=== PATIENT | male | born 1945 | race Caucasian/White ===

== ENCOUNTER 2025-04-11 08:18 | Inpatient (IN) | payer MEDICARE, BC, SELFPAY ==
[2025-04-09 13:18] VITALS: BP 168/73
[2025-04-09 13:42] VITALS: BP 153/105
--- NOTE | 2025-04-09 13:44 | ED.CVA ---
History of Present Illness
General
Chief Complaint: CVA/TIA Symptoms
Source: patient
Exam Limitations: none
Time Seen by Provider: 04/09/25 13:39
Nursing documentation reviewed up to this point in time: agreed with
Onset of Stroke Symptoms
Onset of symptoms known: Yes
Date of onset of symptoms: 04/09/25
Time of onset of symptoms: 09:00
History of Present Illness
History of Present Illness:
Note:
CHIEF COMPLAINT(S)
Altered mental status and difficulty with ambulation.
HISTORY OF PRESENT ILLNESS
The patient is an 79-year-old male who presented with altered mental status and difficulty walking. 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 The patient reported having a severe cold and
headache the previous day. He took delsym last night before sleeping. His found him with his eyes closed at 9:00 AM, noting he was not acting as usual. He did not exhibit the ability to control his movements reliably, such as walking properly,
stating he felt confused. On examination, the patient answered some orientation questions incorrectly and had difficulty with coordination exercises.
SOCIAL HISTORY
The patient reported occasional beer consumption and confirmed he does not smoke tobacco or use illicit drugs.
PAST SURGICAL HISTORY
The patient underwent surgery for inguinal hernia at the age of 17.
PHYSICAL EXAM
-
Physical Exam
General: no apparent distress, not acutely ill
Neck: supple. no meningeal signs. normal posterior pharynx
Heart: s1/s2 regular rate and rhythm, no murmur. equal radial
pulses.
HEENT: Pupils equal round reactive to light, EOMI
Lungs: no acute respiratory distress. clear bilaterally
Abdomen: normal bowel sounds. not tender. no CVAT
Neuro: alert and oriented. no focal neurological deficits cranial nerves II through XII intact
Skin: no rash
Psychiatric: well kept. interactive and cooperative
Extremities: no edema. no calf tenderness. negative homans. good distal pulses
- Nursing notes reviewed and vital signs reviewed.
PLAN
1. A neurological evaluation is planned, and the patient may be admitted for further observation and management.
2. Consultation with a neurologist to rule out cerebrovascular events, such as a stroke.
3. Blood tests have been ordered to further assess the patients condition.
4. Awaiting radiology interpretation of the computed tomography scan for further evaluation.
5. Consideration of starting a daily aspirin regimen after consultation with the neurologist.
DIFFERENTIAL DIAGNOSIS
The Differential Diagnosis includes, in no particular order and is not limited to:
1. Transient Ischemic Attack (TIA)
2. Cerebrovascular Accident (CVA or Stroke)
3. Acute Confusional State or Delirium
4. Medication Side Effects or Overdose
5. Intracranial Hemorrhage
6. Infection such as Sepsis or Viral Encephalitis
7. Metabolic Disturbance, e.g., Hypoglycemia or Electrolyte Imbalance
8. Dehydration
9. Dementia exacerbation
10. Toxicity or Substance Intoxication
CARE-UPDATE
04/09/25 - 14:43
CT head results normal. Neurology consulted, recommends CT angiography of head and neck. Admission to hospitalist service for further evaluation and workup.
Disposition:
SUMMARY OF ENCOUNTER
The patient is an 79-year-old male who presented to the emergency department with altered mental status and difficulty walking. His disorientation and confusion started in the morning after awakening, following a previous day of severe cold and
headache alleviated by Delsym. According to his , he failed to control his movements properly due to confusion. Examination revealed inaccuracies in orientation questions and trouble coordinating movements. Initial management included a
neurological assessment, blood tests, and a CT scan to evaluate potential cerebrovascular incidents. The CT scan results were normal.
CONSIDERATION FOR ADMISSION
Admission to the hospitalist service was considered for further evaluation and management.
ASSESSMENT
The differential diagnosis included possible transient ischemic attack, cerebrovascular accident, medication side effects, infection, metabolic disturbances, and dehydration. Given the altered mental status and abnormal coordination, a neurological
cause was heavily considered, possibly influenced by medication side effects or infection.
PLAN
1. Conduct a neurological evaluation and consider admission for continued observation and management.
2. Consult with a neurologist to rule out events such as a stroke.
3. Continue awaiting further analysis from the CT angiography of head and neck as recommended by the neurologist.
4. Consider initiating a daily aspirin regimen upon neurologist approval.
MANAGEMENT OF THE PATIENTS CARE WAS DISCUSSED WITH
Neurology consulted, recommending CT angiography of the head and neck.
INDEPENDENT INTERPRETATION OF TESTS
- My independent interpretation of the CT head is normal, ruling out acute lesions or hemorrhages.
MEDICAL DECISION MAKING
The patient presented with altered mental status and difficulty ambulating, raising alarm for severe conditions like stroke or transient ischemic attacks. This, coupled with potential medication side effects, required intricate differential
diagnosis and management considerations. The appropriate lab tests and CT imaging were analyzed, informing continued care decisions. Social factors did not complicate management given the patients stable social situation. The possibility of
hospitalization was considered to ensure comprehensive evaluation and care continuity.
Past History
Past History
ED Past Medical History: None
ED Past Surgical History: None
Social History
Tobacco: Non-smoker
Alcohol: Occasional
Drug: None
Personal:
Phy Exam
Physical Exam
Physical Exam:
.
Scores
NIH Stroke Score
Level of Consciousness: 0 - Alert
LOC Questions: 0-Answers both correctly
LOC Commands: 0-Performs both correctly
Best Horizontal Gaze: 0-Normal
Visual Anand: 0=Normal, no visual loss
Facial Palsy: 0=Normal, symmetrical
Motor - Right Arm: 0=No drift 10 seconds
Motor - Left Arm: 0=No drift 10 seconds
Motor - Right Le-No drift 5 seconds
Motor - Left Le-No drift 5 seconds
Limb Ataxia: 0-Absent
Sensation: 0-Normal
Best Language: 0-No aphasia
Dysarthria: 0-Normal
Extinction and Inattention: 0-No abnormality
NIH Total Score:: 0
Thrombolytic Contraindication
Inclusion and Exclusion criteria reviewed: Yes
Reasons for NON-Tx with Thrombolytics ABSOLUTE Exclusions: Greater than 4.5 hrs from onset of sxs
Course
Orders/Labs/Results
Orders:
Orders
04/09/25 13:21
Electrocardiogram (*1) Urgent
Reason for Study: Vertigo / Dizzy
CT Head W/o Iv Contrast Urgent
Comment:
Reason For Exam: gait issues/slow speech
EKG- Treatment ONCE
04/09/25 13:37
Complete Blood Count/With Diff Urgent
Comprehensive Metabolic Panel Urgent
Glycohemoglobin (HgbA1c) Urgent
PTT Urgent
Troponin I Urgent
04/09/25 14:28
Aspirin Chewable [Low Strength Aspirin] 324 mg PO NOW STA
Clopidogrel Bisulfate [Plavix] 300 mg PO NOW STA
04/09/25 14:29
CT Head & Neck Angio W/wo IV Urgent
Reason For Exam: ataxia, garbled speech
04/09/25 14:48
Admit/Transfer Patient As Directed
Co-Sign Provider:
Level of Care: Observation services
Assign to:: Telemetry
Physician / Group: tomas
Diagnosis: possible cva
Reason for Telemetry: Arrhythmia
Date to Stop Telemetry: 04/12/25
Time to Stop Telemetry: 11:00
Code Status As Directed
Resuscitation Status: Full Code
PRN Pain Medication Management As Directed
May give lesser potent ordered pain med per pt: Yes
preference::
Protocol:: Medication orders for pain may be administered in a
manner that supports deferring to patient preference
when the pt is:
- Requesting an ordered lesser potent pain medication.
Least to most potent pain medications are defined
as: acetaminophen < NSAID < tramadol < opioids
(morphine, oxycodone, hydromorphone).
- Requesting a lesser dose of the same medication IF
ORDERED.
- Requesting a less intrusive route of administration
if both routes are prescribed by the provider (PO <
IV).
04/09/25 Dinner
Regular
At Your Request: Full Participation
04/09/25 16:39
NEUROLOGY CONSULT Routine
Consulting Provider: Shahla Meza
Was physician already notified: Yes
MRI Brain [MR Brain Without Contrast] Routine
Comment:
Reason For Exam: speaking diffculty
Recent pill cam endoscopy?: No
Activity As Directed
Activity Level: As Tolerated
Pneumatic Compression Sleeves As Directed
Type: Knee high
Vital Signs As Directed
Frequency: Per unit guidelines
DX Deep Vein Thrombosis Video Routine
04/09/25 17:27
Lipid Profile [Cardiovascular Evaluation] Routine
04/10/25 06:00
Complete Blood Count/With Diff IN AM
Comprehensive Metabolic Panel IN AM
04/10/25 08:00
Aspirin Chewable [Low Strength Aspirin] 81 mg PO DAILY
Clopidogrel Bisulfate [Plavix] 75 mg PO DAILY
04/12/25 11:00
DC Protocol for Telemetry ONCE
Abnormal Lab Results
04/09/25
13:37
Absolute Lymphs (auto) 0.5 L 10^3/uL
(1.2-3.4)
Absolute Monos (auto) 1.2 H 10^3/uL
(0.1-0.6)
Lymphocytes % 6.3 L %
(20.5-51.1)
Monocytes % 14.5 H %
(1.7-9.3)
Potassium 5.2 H mmol/L
(3.5-5.1)
BUN 32 H mg/dl
(9-20)
04/09/25 13:37
04/09/25 13:37
Vital Signs
Initial and Last Documented VS:
Initial Vital Signs
Temp Pulse Resp BP Pulse Ox
98.0 F 57 20 168/73 99
04/09/25 13:18 04/09/25 13:18 04/09/25 13:18 04/09/25 13:18 04/09/25 13:18
Last Documented Vital Signs
Temp Pulse Resp BP Pulse Ox
98.1 F 53 20 201/79 97
04/09/25 16:47 04/09/25 16:47 04/09/25 16:47 04/09/25 17:42 04/09/25 16:47
*Pulse Oximetry
SaO2: 99
Oxygen Mode of Delivery: Room air
*Critical Care Note
Total Time (30-74mins, 75-104mins- exclusive of procedures): Not Applicable
ED Attending Note
-
Portions of this chart may have been created with voice recognition software.� Occasional wrong word or��sound alike� substitutions may have occurred due to the inherent limitations of voice recognition software.
Discharge Plan
Departure
Patient Disposition: Admit
Date of Disposition: 04/09/25
Time of Disposition: 14:32
Admit to: Telemetry
Presentation/result/management discussed w/ accepting MD/DO: Hospitalist
Patient with high blood pressure during this ER visit?: Yes
Condition: Good
Discharge Problem:
TIA (transient ischemic attack)
Interventions
Interventions:
*Risk Screen - Suicide Last Done: 04/09/25 16:34
*General Assessment Last Done: 04/09/25 13:18
*Neglect/Abuse Screening Last Done: 04/09/25 16:34
*ED- Fall Risk Assessment Last Done: 04/09/25 16:34
*ED COVID-19 Vaccine History Last Done: 04/09/25 16:34
*Nursing Disposition Last Done: 04/09/25 16:34
ED- Pulmonary Assessment Last Done: 04/09/25 15:55
ED- Neurological Assessment Last Done: 04/09/25 15:52
ED- Cardiac Assessment Last Done: 04/09/25 15:55
ED Swallowing Screen Last Done: 04/09/25 15:26
Discharge Date and Time
Discharge Date/Time: 04/09/25 16:35
[2025-04-09 13:47] LABS: % Basophils 0.5 % (0-2); % Eosinophils 4.7 % (0-6); % Immature Granulocytes 0.3 % (0-0.5); % Lymphocytes 6.3 % (20.5-51.1); % Monocytes 14.5 % (1.7-9.3); % Neutrophils 73.7 % (42.2-75.2); Absolute Eosinophils 0.4 10^3/uL (0-0.7); Absolute Lymphocytes 0.5 10^3/uL (1.2-3.4); Absolute Monocytes 1.2 10^3/uL (0.1-0.6); Absolute Neutrophils 5.8 10^3/uL (1.4-6.5); Hematocrit 45.4 % (39.0-52.0); Hemoglobin 15.7 g/dL (13.0-18.0); Mean Corp Hgb Conc. 34.6 g/dL (33.0-37.0); Mean Corpuscular Hgb 30.9 pg (27.0-31.0); Mean Corpuscular Volume 89.4 fL (80.0-94.0); Mean Platelet Volume 9.8 fL (7.4-10.4); Nucleated Red Blood Cells % 0 % (-); Platelet Count 193 10^3/uL (130-400); Red Blood Cell Count 5.08 10^6/uL (4.70-6.10); Red Cell Dist. Width 12.6 % (11.5-14.5); White Blood Cell Count 7.9 10^3/uL (4.8-10.8)
[2025-04-09 14:00] VITALS: BP 150/68
[2025-04-09 14:01] LABS: ALT (SGPT) 19 U/L (0-50); AST (SGOT) 34 U/L (17-59); Albumin 4.4 g/dl (3.5-5.0); Alkaline Phosphatase 43 U/L (38-126); Blood Urea Nitrogen 32 mg/dl (9-20); Calcium 8.5 mg/dl (8.4-10.2); Carbon Dioxide 24 mmol/L (22-30); Chloride 106 mmol/L (98-107); Glucose 81 mg/dl (70-99); Potassium 5.2 mmol/L (3.5-5.1); Sodium 136 mmol/L (135-145); Total Protein 7.3 g/dl (6.3-8.2); eGFR > 60.00
[2025-04-09 14:11] LABS: Troponin I < 0.012 ng/ml
[2025-04-09 14:32] VITALS: BMI 23.6
[2025-04-09] MEDS: LOW STRENGTH ASPIRIN 324 MG PO (14:40)
[2025-04-09] MEDS: PLAVIX 300 MG PO (14:41)
--- NOTE | 2025-04-09 14:51 | HPS.HSE ---
Family Physician
-
Family Physician: * NONE
Chief Complaint
-
speaking difficulty
History of Present Illness
79-year-old male without past medical history presenting with acute onset of feeling off balance, difficulty speaking since this morning as well as generalized weakness. He had a headache last night which she continues to have mildly. Feels dizzy
today. No vertigo. No blurry vision. No double vision. No numbness or tingling, focal weakness. No numbness or tingling. No difficulty swallowing.
Denies symptoms like this previously.
Denies smoking. Drinks alcohol occasionally. No drugs.
His father had open heart surgery.
Medical History
Past Medical History
Past Medical History: Reports None
Past Surgical History: Reports None
Social History
Tobacco: Non-smoker
Alcohol: Occasional
Drug: None
Family History
Family History: Not pertinent
Allergies / Home Medications
Allergies reflects when Allergies were last updated in [facility].
Home Medications with original date entered in [facility]
Allergy/Medication List:
Allergies
Allergy/AdvReac Type Severity Reaction Status Date / Time
No Known Allergies Allergy Verified 04/09/25 13:18
Home Medications
dextromethorphan HBr 30 mg/5 mL oral liquid 30 mg PO DAILYPRN PRN cough 04/09/25
pseudoephedrine HCl 30 mg tablet (Sudafed) 30 mg PO DAILYPRN PRN allergies 04/09/25
Review of Systems
-
History Source: Patient
A 12 point ROS was completed and negative except as noted: Yes
Constitutional: Reports No Symptoms
EENT: Reports No Symptoms
Respiratory: Reports No Symptoms
Cardiac: Reports No Symptoms
Abdomen/GI: Reports No Symptoms
: Reports No Symptoms
Musculoskeletal: Reports No Symptoms
Skin: Reports No Symptoms
Neurological: Reports No Symptoms
Endocrine: Reports No Symptoms
Hematologic/Lymphatic: Reports No Symptoms
Psych: Reports No Symptoms
Physical Exam
Vital Signs
Vital Signs
Temp Pulse Resp BP Pulse Ox
98.0 F 61 16 150/68 99
04/09/25 13:18 04/09/25 14:15 04/09/25 14:15 04/09/25 14:00 04/09/25 13:45
Physical Exam
General: Well Developed, Well Nourished and No Apparent Distress
HEENT: NormoCephalic, Moist mucous membranes and Atraumatic
Respiratory: Clear
Cardiac: S1/S2 and Regular Rhythm; No Murmur or Rub
GI: Soft, Non Tender, Non Distended and Normal Bowel Sounds; No Organomegaly
Rectal: Deferred by Provider
Musculoskeletal: No Clubbing, No Cyanosis and No Edema
Skin: No Rash
Neuro: Nonfocal/grossly intact
Laboratory Results
-
04/09/25 13:37
04/09/25 13:37
Laboratory Results
APTT 33.0 Sec (23.4-35.0) 04/09/25 13:37
Total Bilirubin 1.0 mg/dl (0.2-1.3) 04/09/25 13:37
AST 34 U/L (17-59) 04/09/25 13:37
ALT 19 U/L (0-50) 04/09/25 13:37
Alkaline Phosphatase 43 U/L (38-126) 04/09/25 13:37
Troponin I < 0.012 ng/ml 04/09/25 13:37
Data Reviewed
-
Lab Data: Labs Reviewed by me
Old Records: Reviewed
Impression/Plan
-
IMPRESSION:
PLAN:
# Gait dysfunction/dysarthria/headache concerning for possible CVA
- CT head negative
- CTA head and neck pending
- Aspirin and Plavix given
- Check A1c and lipid panel
- Check MRI brain
- Neurology consulted
Full code
DVT prophylaxis SCDs
Regular diet
--- NOTE | 2025-04-09 16:19 | CON.NEURO ---
Consultation
Order
Date of Consultation: 04/09/25
Requesting Provider: Tri Garza MD
Reason for Consult: Stroke
Neurology Consultation Note.
HPI: This is an 79-year-old right-handed man with no recent medical care presents with acute onset of speech difficulties and unsteadiness that began this morning.
The patient reports that yesterday he experienced a cold and a severe headache. This morning at approximately 9:00 AM, he woke up and noticed he couldn't talk properly. He endorses difficulty forming words. The patient states that his thinking and
comprehension remained clear, but his expressive abilities were preserved. These speech difficulties are ongoing and the patient is unsure if they are improving.
Mr. Calderon also experienced imbalance, nonpositional dizziness, resulting in one fall with no loss of consciousness or head trauma. He also reports feeling dizzy, specifically describing a spinning sensation. A mild headache persists from
yesterday. The patient denies weakness or numbness on one side, double vision, changes in vision, difficulty swallowing, nausea, or tinnitus.
The patient has not seen a doctor in 10 years. He exercises regularly, going to the gym 5 times a week, and states that these symptoms 'came out of nowhere.'
ER VS: 168/73, 57�54, afebrile.
EKG:NSR, QTc Int : 446 ms
PDMP:none
Labs: Normal WBCs, sodium, glucose, potassium�5.2, creatinine�1.2.
CT head wo contrast�no acute abnormalities
CTA head/neck�unremarkable
PMH: No prior medical care
PSH: Bilateral cataract surgery, hernia repair
SH: , former smoker, retired business operations specialist, moderate alcohol consumption
FH: Father-coronary artery disease
All:NKDA
ROS: Constitutional: Negative. Negative for chills, fever and unexpected weight change.
HENT: Positive for chronic impairment
Eyes: Negative. Negative for photophobia, pain and visual disturbance.
Respiratory: Negative for cough, choking and shortness of breath.
Cardiovascular: Negative for chest pain, palpitations and leg swelling.
Gastrointestinal: Negative for abdominal pain and vomiting.
Endocrine: Negative. Negative for cold intolerance.
Genitourinary: Negative for dysuria, flank pain and urgency.
Musculoskeletal: Negative for back pain, gait problem, neck pain and neck stiffness.
Skin: Negative for rash.
Allergic/Immunologic: Negative. Negative for immunocompromised state.
Neurological: Positive for dizziness, speech difficulties (forming words), unsteadiness. Negative for weakness on one side, numbness on one side, slurred speech.
Psychiatric/Behavioral: Negative for behavioral problems, confusion and hallucinations.
General: Well developed. In no acute distress.
Cardio: Regular rate and rhythm without murmur. Extremities are without cyanosis or edema.
Neuro:
Mental Status: Alert, oriented to person, place, and date. Normal attention and recall. Minimal expressive aphasia. Good fund of knowledge. Follows complex requests across the midline. Comprehension, naming, and repetition intact.
Cranial Nerves: Pupils are equally round, surgical. EOMs full. Visual starr full to confrontation. No ptosis. No nystagmus. V1-V3 intact to light touch and pinprick bilaterally, symmetric. Face symmetric. Impaired hearing AU. The palate
elevated well. SCMs and traps 5/5. Tongue midline. No dysarthria.
Motor: Normal bulk and tone. No pronator or arm drift. Strength 5/5 throughout. No clonus.
Reflexes: 2+ throughout the upper extremities and knees. Plantar responses flexor bilaterally.
Sensory: Normal proprioception at the toes
Coordination: No dysmetria or tremor.
Gait: deferred
Assessment and Plan:
I. Acute dysphasia. Likely etiology�vascular
II. HTN
III. LUISA
-Continue Telemetry monitoring
-Aspiration precautions
-Start antihypertensive medications if BP>140/90 mmHg and neurologically stable in 24 to 48 hours after stroke onset
- Start DAPT after Plavix load.
-Lipitor 40 mg QHS.
-Please check HbA1C, LDL.
-Brain MRI without
-TTE
-PT.
-DVT prophylaxis.
I personally reviewed all radiology and labs along with past medical records pertinent to current medical problems. Total time spent in patient care is 60 minutes.
Thank you for allowing us to participate in the care of this patient. We will continue to follow. Please do not hesitate to contact us with any questions or concerns.
Subjective/Objective
Subjective Data
Date of Service: April 09, 2025
Objective Data
Vital Signs
Temp Pulse Resp BP Pulse Ox
36.7 C 55 14 150/68 99
04/09/25 13:18 04/09/25 16:00 04/09/25 16:00 04/09/25 14:00 04/09/25 13:45
Lab Results
04/09/25 13:37
04/09/25 13:37
APTT 33.0 Sec (23.4-35.0) 04/09/25 13:37
Sodium 136 mmol/L (135-145) 04/09/25 13:37
Potassium 5.2 mmol/L (3.5-5.1) H 04/09/25 13:37
BUN 32 mg/dl (9-20) H 04/09/25 13:37
Glucose 81 mg/dl (70-99) 04/09/25 13:37
Calcium 8.5 mg/dl (8.4-10.2) 04/09/25 13:37
Patient Allergies
No Known Allergies Allergy (Verified 04/09/25 13:18)
Medications
-
Home Medications
�Medication �Instructions �Recorded
dextromethorphan HBr 30 mg/5 mL 30 mg PO DAILYPRN PRN cough 04/09/25
oral liquid
pseudoephedrine HCl 30 mg tablet 30 mg PO DAILYPRN PRN allergies 04/09/25
(Sudafed)
Vital Signs and Labs
-
Vital Signs and Labs:
Vital Signs
Temp Pulse Resp BP Pulse Ox
36.7 C 55 14 150/68 99
04/09/25 13:18 04/09/25 16:00 04/09/25 16:00 04/09/25 14:00 04/09/25 13:45
Lab Results
04/09/25 13:37
04/09/25 13:37
APTT 33.0 Sec (23.4-35.0) 04/09/25 13:37
Sodium 136 mmol/L (135-145) 04/09/25 13:37
Potassium 5.2 mmol/L (3.5-5.1) H 04/09/25 13:37
BUN 32 mg/dl (9-20) H 04/09/25 13:37
Glucose 81 mg/dl (70-99) 04/09/25 13:37
Calcium 8.5 mg/dl (8.4-10.2) 04/09/25 13:37
Home Medications
-
Home Medications
dextromethorphan HBr 30 mg/5 mL oral liquid 30 mg PO DAILYPRN PRN cough 04/09/25
pseudoephedrine HCl 30 mg tablet (Sudafed) 30 mg PO DAILYPRN PRN allergies 04/09/25
[2025-04-09 16:47] VITALS: BP 202/80
--- NOTE | 2025-04-09 17:34 | PTCARENOTE ---
Received pt at 1640. AAOX3, ambulatory. NIH 0. BP 200s/70s, HR 50s-- attending and neurologist notified for orders.
[2025-04-09] MEDS: APRESOLINE 5 MG IV (17:42)
[2025-04-09 18:00] LABS: HDL Cholesterol 63 mg/dl; LDL Cholesterol, Calculated 96 mg/dl; Total Cholesterol 172 mg/dl (50-199); Triglyceride 67 mg/dl (10-149); Very Low Density Lipoprotein 13 mg/dl (0-30)
[2025-04-09 18:42] VITALS: BMI 23.6
[2025-04-09 19:42] VITALS: BP 149/74
[2025-04-09 23:30] VITALS: BP 178/85
[2025-04-10] VITALS (7 sets, daily range): BP systolic 138–185; BP diastolic 63–87
[2025-04-10] MEDS: LOW STRENGTH ASPIRIN 81 MG PO (07:46)
[2025-04-10] MEDS: PLAVIX 75 MG PO (07:46)
--- NOTE | 2025-04-10 07:56 | W.PN.NEURO.1 ---
Today's Communication / Plan
-
.
Subjective/Objective
Subjective Data
Date of Service: April 10, 2025
Neurology follow-up note.
Mr. Calderon states that his speech alteration lasted for most of yesterday, with some improvement noted by evening. He is 'considerably better today' but not back to baseline according to patient's spouse.
Blood pressure in the morning was 185/81, continues to be afebrile.
Brain MRI showed no acute infarcts, mild hyperintensity within the periventricular and deep subcortical white matter.
Routine EEG�no epileptiform abnormalities.
LDL�96, vitamin B12�pending.
PMH: HTN
PSH: Bilateral cataract surgery, hernia repair
SH: , former smoker, retired [employer], moderate alcohol consumption
FH: Father-coronary artery disease
All:NKDA
ROS: Constitutional: Negative. Negative for chills, fever and unexpected weight change.
HENT: Positive for chronic impairment
Eyes: Negative. Negative for photophobia, pain and visual disturbance.
Respiratory: Negative for cough, choking and shortness of breath.
Cardiovascular: Negative for chest pain, palpitations and leg swelling.
Gastrointestinal: Negative for abdominal pain and vomiting.
Endocrine: Negative. Negative for cold intolerance.
Genitourinary: Negative for dysuria, flank pain and urgency.
Musculoskeletal: Negative for back pain, gait problem, neck pain and neck stiffness.
Skin: Negative for rash.
Allergic/Immunologic: Negative. Negative for immunocompromised state.
Neurological: Positive for dizziness, speech difficulties (forming words), unsteadiness. Negative for weakness on one side, numbness on one side, slurred speech.
Psychiatric/Behavioral: Negative for behavioral problems, confusion and hallucinations.
General: Well developed. In no acute distress.
Cardio: Regular rate and rhythm without murmur. Extremities are without cyanosis or edema.
Neuro:
Mental Status: Alert, oriented to person, place, and date. Normal attention and recall. Minimal expressive aphasia. Good fund of knowledge. Follows complex requests across the midline. Comprehension, naming, and repetition intact.
Cranial Nerves: Pupils are equally round, surgical. EOMs full. Visual starr full to confrontation. No ptosis. No nystagmus. V1-V3 intact to light touch and pinprick bilaterally, symmetric. Face symmetric. Impaired hearing AU. The palate
elevated well. SCMs and traps 5/5. Tongue midline. No dysarthria.
Motor: Normal bulk and tone. No pronator or arm drift. Strength 5/5 throughout. No clonus.
Reflexes: 2+ throughout the upper extremities and knees. Plantar responses flexor bilaterally.
Sensory: Normal proprioception at the toes
Coordination: No dysmetria or tremor.
Gait: deferred
Assessment and Plan:
I. Hypertensive encephalopathy, significantly improved.
II. HTN
III. LUISA
-Continue Telemetry monitoring
-Blood pressure goal�normotension
-Please follow-up vitamin B12 level, TFTs
-Continue aspirin 81 mg once a day
-Outpatient neurology follow-up.
-Case was discussed with patient's spouse
I personally reviewed all radiology and labs along with past medical records pertinent to current medical problems. Total time spent in patient care is 37 minutes.
Thank you for allowing us to participate in the care of this patient. Please do not hesitate to contact us with any questions or concerns.
Objective Data
Vital Signs
Temp Pulse Resp BP Pulse Ox
36.7 C 56 18 171/79 95
04/10/25 03:19 04/10/25 03:19 04/10/25 03:19 04/10/25 03:19 04/10/25 03:19
APTT 33.0 Sec (23.4-35.0) 04/09/25 13:37
Sodium 136 mmol/L (135-145) 04/09/25 13:37
Potassium 5.2 mmol/L (3.5-5.1) H 04/09/25 13:37
BUN 32 mg/dl (9-20) H 04/09/25 13:37
Glucose 81 mg/dl (70-99) 04/09/25 13:37
Calcium 8.5 mg/dl (8.4-10.2) 04/09/25 13:37
LDL Cholesterol, Calc 96 mg/dl 04/09/25 17:27
Patient Allergies
No Known Allergies Allergy (Verified 04/09/25 13:18)
Vital Signs and Labs
-
Vital Signs and Labs:
Vital Signs
Temp Pulse Resp BP Pulse Ox
36.7 C 53 20 153/87 96
04/10/25 11:39 04/10/25 11:39 04/10/25 11:39 04/10/25 11:39 04/10/25 11:39
Lab Results
04/10/25 07:03
04/10/25 07:03
APTT 33.0 Sec (23.4-35.0) 04/09/25 13:37
Sodium 137 mmol/L (135-145) 04/10/25 07:03
Potassium 4.8 mmol/L (3.5-5.1) 04/10/25 07:03
BUN 28 mg/dl (9-20) H 04/10/25 07:03
Glucose 93 mg/dl (70-99) 04/10/25 07:03
Calcium 8.6 mg/dl (8.4-10.2) 04/10/25 07:03
LDL Cholesterol, Calc 96 mg/dl 04/09/25 17:27
Medications
-
Medications:
Generic Name Dose Route Start Last Admin
Trade Name Freq PRN Reason Stop Dose Admin
Amlodipine Besylate 5 mg 04/10/25 12:00 04/10/25 12:13
Amlodipine 5 Mg Tablet PO 05/08/25 11:59 5 mg
BID CALEB Administration
Aspirin 81 mg 04/10/25 08:00 04/10/25 07:46
Aspirin 81 Mg Chewable Tablet PO 05/08/25 07:59 81 mg
DAILY CALEB Administration
Carvedilol 3.125 mg 04/10/25 12:00 04/10/25 12:13
Carvedilol 3.125 Mg Tablet PO 05/08/25 11:59 3.125 mg
BID CALEB Administration
Clopidogrel Bisulfate 75 mg 04/10/25 08:00 04/10/25 07:46
Clopidogrel 75 Mg Tablet PO 05/08/25 07:59 75 mg
DAILY CALEB Administration
Hydralazine HCl 5 mg 04/09/25 17:36 04/09/25 17:42
Hydralazine 20 Mg/Ml Vial IV 05/07/25 17:35 5 mg
Q6HPRN PRN Administration
SBP>180
Sodium Chloride 0 flush 04/09/25 17:00
Sodium Chloride 0.9% (Flush) Syringe IV 05/07/25 16:59
PER PROTOCOL CALEB
Home Medications
-
Home Medications
dextromethorphan HBr 30 mg/5 mL oral liquid 30 mg PO DAILYPRN PRN cough 04/09/25
pseudoephedrine HCl 30 mg tablet (Sudafed) 30 mg PO DAILYPRN PRN allergies 04/09/25
[2025-04-10 07:59] LABS: % Basophils 0.4 % (0-2); % Eosinophils 7.2 % (0-6); % Immature Granulocytes 0.4 % (0-0.5); % Lymphocytes 12.4 % (20.5-51.1); % Monocytes 19.9 % (1.7-9.3); % Neutrophils 59.7 % (42.2-75.2); Absolute Eosinophils 0.5 10^3/uL (0-0.7); Absolute Lymphocytes 0.9 10^3/uL (1.2-3.4); Absolute Monocytes 1.4 10^3/uL (0.1-0.6); Absolute Neutrophils 4.3 10^3/uL (1.4-6.5); Hematocrit 47.2 % (39.0-52.0); Hemoglobin 16.3 g/dL (13.0-18.0); Mean Corp Hgb Conc. 34.5 g/dL (33.0-37.0); Mean Corpuscular Hgb 30.4 pg (27.0-31.0); Mean Corpuscular Volume 87.9 fL (80.0-94.0); Mean Platelet Volume 9.8 fL (7.4-10.4); Nucleated Red Blood Cells % 0 % (-); Platelet Count 198 10^3/uL (130-400); Red Blood Cell Count 5.37 10^6/uL (4.70-6.10); Red Cell Dist. Width 12.9 % (11.5-14.5); White Blood Cell Count 7.1 10^3/uL (4.8-10.8)
[2025-04-10 08:13] LABS: ALT (SGPT) 21 U/L (0-50); AST (SGOT) 34 U/L (17-59); Albumin 4.2 g/dl (3.5-5.0); Alkaline Phosphatase 58 U/L (38-126); Blood Urea Nitrogen 28 mg/dl (9-20); Calcium 8.6 mg/dl (8.4-10.2); Carbon Dioxide 24 mmol/L (22-30); Chloride 106 mmol/L (98-107); Estimated Creatinine Clearance 48 ml/min; Glucose 93 mg/dl (70-99); Potassium 4.8 mmol/L (3.5-5.1); Sodium 137 mmol/L (135-145); Total Bilirubin 0.7 mg/dl (0.2-1.3); Total Protein 6.8 g/dl (6.3-8.2); eGFR > 60.00
[2025-04-10 10:50] LABS: Glycohemoglobin (HgbA1c) 5.1 % (4.0-5.6)
--- NOTE | 2025-04-10 11:48 | EEGC.RPT ---
Continuous EEG Report
Recording
Start Date of Data Reviewed: 04/10/25
End Date of Data Reviewed: 04/10/25
Done with Video Recording: Yes
Report
TECHNICAL REMARKS: This is a technically satisfactory eighteen channel record employing 21 disc electrodes applied according to a measured international 10-20 electrode placement system. There were no significant technical difficulties. The study
was done on a [employer] System.
CLINICAL HISTORY: This is an 79-year-old man with language dysfunction. This study was requested to look for epileptiform abnormalities.
MEDICATION: no AED
STUDY DURATION: 29 min, 15 secs
REPORT: At the onset of the EEG, the patient is awake. The background activity consists of 9.5-10 Hz, persistent, posteriorly dominant, moderate amplitude, symmetric and rhythmic activity that is reactive to eye-opening. Anteriorly, it consists of
a mixture of low voltage indeterminate activity and 20-25 Hz, persistent, low amplitude, symmetric and rhythmic activity. Stepwise intermittent photic stimulation (1-31 Hz) does not induce any abnormalities. Hyperventilation was not performed.
Drowsiness is characterized by low amplitude mixed frequency activity, decreased eye blinking, and muscle artifact. Multiple muscle artifacts were seen.
IMPRESSION: This is a normal awake and drowsy EEG. There is no evidence of focal slowing or epileptiform activity. A normal EEG does not rule out epilepsy. If the clinical picture warrants, a sleep-deprived awake and sleep record may be helpful.
[2025-04-10] MEDS: NORVASC 5 MG PO ×2 (12:13→20:47)
[2025-04-10] MEDS: COREG 3.125 MG PO ×2 (12:13→20:46)
--- NOTE | 2025-04-10 12:45 | W.PN.HOSP.TC ---
Today's Communication/Plan
-
Antihypertensives
Defer if pt needs antiplatelets to Neuro
Assessment / Plan
Assessment / Plan
79-year-old right-handed man with no recent medical care presents with acute onset of speech difficulties and unsteadiness . patient had severe headache around 9:00
MRI of the brain-no acute intracranial abnormality
CTA head and neck-cervical carotid and vertebral arteries are patent. No COW Aneurysm or stenosis
EKG-sinus rhythm
Echo 04/10/2025-normal biventricular size and systolic function. EF 60 to 65%. Normal RV size and function. Moderate AI. Insufficient TR for estimation of PASP.
CVS: S1-S2 normal
Chest: CTA B/L
Abdomen: Soft, NT / Bowel sounds present
Extremities: No edema
PLANER FEEDER: Non focal exam
# Speech abnormalities-unclear reasons
MRI with no evidence of stroke
CTA without any evidence of vascular abnormalities
Possibly hypertensive encephalopathy
Echo ordered-pending
PT OT and speech eval
# Hypertension with possible hypertensive encephalopathy
Start Norvasc and Coreg.
Avoiding ERIK/ARB secondary to patient's hyperkalemia
Patient advised stop Sudafed
# Hyperkalemia-resolved
# DVT prophylaxis-Lovenox
# Full CODE
D/W at bed side
Anticipated Discharge: Within 24 hours
Subjective/Interval History
-
Date of Service: April 10, 2025
Objective Data
-
Labs:
Laboratory Results
04/10/25
07:03
WBC 7.1
Hgb 16.3
Hct 47.2
Plt Count 198
Sodium 137
Potassium 4.8
Chloride 106
Carbon Dioxide 24
BUN 28 H
Creatinine 1.2
Glucose 93
Calcium 8.6
Total Bilirubin 0.7
AST 34
ALT 21
Alkaline Phosphatase 58
Vital Signs:
Vital Signs
Temp Pulse Resp BP Pulse Ox
98.1 F 53 20 153/87 96
04/10/25 11:39 04/10/25 11:39 04/10/25 11:39 04/10/25 11:39 04/10/25 11:39
I&O
04/09/25 04/10/25 04/11/25
06:59 06:59 06:59
Intake Total 240 / 240
Balance 240 / 240
--- NOTE | 2025-04-10 14:21 | CM ---
CM reviewed chart, patient seen bedside with , initial assessment completed. Patient resides in a multiple story home, one step to enter through front door, no steps to enter through garage. Patient is independent with ADLs/IADLs, denies use of
DME, denies VN/SNF history. Patient does not currently have a PCP, offered [facility] info, declined at this time. Patient pharmacy [facility], patient does not have prescription coverage. MARTINZE form verbally reviewed, provided with
copy, placed in chart. Patient offered advance directive, declining at this time. CM will continue to follow for all discharge planning needs.
Plan; home with , no needs
[2025-04-10 16:10] LABS: Vitamin B12 464 pg/ml (239-931)
[2025-04-10 23:28] LABS: TSH Reflex To Free T4 5.99 uIU/ml (0.47-4.68)
[2025-04-10 23:57] LABS: Free T4 0.98 ng/dl (0.78-2.19)
[2025-04-11 03:50] VITALS: BP 167/75
[2025-04-11 07:00] VITALS: BP 174/86
[2025-04-11] MEDS: NORVASC 5 MG PO (07:45)
[2025-04-11] MEDS: LOW STRENGTH ASPIRIN 81 MG PO (07:45)
[2025-04-11] MEDS: COREG 3.125 MG PO (07:45)
[2025-04-11 08:42] VITALS: BP 174/86
[2025-04-11 11:00] VITALS: BP 127/67
--- NOTE | 2025-04-11 11:13 | CM ---
CM reviewed chart, patient seen bedside with spouse, reports no needs from CM at this time. will transport home upon discharge. CM will continue to follow for all discharge planning needs.
Plan; home with , no needs.
--- NOTE | 2025-04-11 13:39 | W.PN.HOSP.TC ---
Today's Communication/Plan
-
Discharge
Assessment / Plan
Assessment / Plan
79-year-old right-handed man with no recent medical care presents with acute onset of speech difficulties and unsteadiness . patient had severe headache around 9:00
MRI of the brain-no acute intracranial abnormality
CTA head and neck-cervical carotid and vertebral arteries are patent. No COW Aneurysm or stenosis
EKG-sinus rhythm
Echo 04/10/2025-normal biventricular size and systolic function. EF 60 to 65%. Normal RV size and function. Moderate AI. Insufficient TR for estimation of PASP.
CVS: S1-S2 normal
Chest: CTA B/L
Abdomen: Soft, NT / Bowel sounds present
Extremities: No edema
MATERIALS ASSISTANT: Non focal exam
# Speech abnormalities-unclear reasons
MRI with no evidence of stroke
CTA without any evidence of vascular abnormalities
Possibly hypertensive encephalopathy
Echo ordered-pending
PT OT and speech eval
# Hypertension with possible hypertensive encephalopathy
Started Norvasc and Coreg.
Avoiding ERIK/ARB secondary to patient's hyperkalemia
Patient advised stop Sudafed
Blood pressure is better
# Hyperkalemia-resolved
# DVT prophylaxis-Lovenox
# Full CODE
D/W at bed side
Discussed about medicines and side effects, Coreg and bradycardia, lower extremity edema with Norvasc. Also advised to monitor and record blood pressures at home. He has a monitor at home.
He also needs to find a PCP. Signs of low blood pressure discussed with the patient and what to do.
Anticipated Discharge: Today
Subjective/Interval History
-
Date of Service: April 11, 2025
Objective Data
-
Vital Signs:
Vital Signs
Temp Pulse Resp BP Pulse Ox
97.2 F 50 22 127/67 96
04/11/25 11:00 04/11/25 11:00 04/11/25 11:00 04/11/25 11:00 04/11/25 11:00
I&O
04/10/25 04/11/25 04/12/25
06:59 06:59 06:59
Intake Total 240 / 240 240 / 240
Balance 240 / 240 240 / 240
--- NOTE | 2025-04-11 13:46 | W.DS.TRANS ---
Addendum entered and electronically signed by Tano Nguyen MD 04/11/25 16:25:
Dictation- [id number]
Original Note:
DC Summary - Hog Dropper
-
Discharge Instructions:
Discharge Diagnosis/Procedures Hypertension
Hypertensive encephalopathy
Diet 2 Gram Sodium
Driving Restrictions As prior to admission
Blood Work BMP 2 weeks
Instructions:
Stand-Alone Forms:
Changes to Home Medications: Yes
Discharge Medications:
DC Medications w/original date entered in [facility]
amlodipine 5 mg tablet 5 mg PO BID #60 tabs 04/11/25
aspirin 81 mg chewable tablet 81 mg PO DAILY Blood clot prevention/tx #0 tabs 04/11/25
carvedilol 3.125 mg tablet 3.125 mg PO BID Blood pressure #60 tabs 04/11/25
guaifenesin 600 mg tablet, extended release 12 hr (Mucinex) 600 mg PO BID Cough #10 tabs 04/11/25
Home Medication Changes
all above new
Pending Results: No
== END 2025-04-11 14:15 | disposition home or self-care (01) | DRG 78 ==
LOC: 4 WEST ACU 08:18
PROVIDERS: ADMITTING PHYSICIAN Hospitalist; ATTENDING PHYSICIAN Hospitalist; CONSULT PHYSICIAN Psychiatry & Neurology Neurology; EMERGENCY PHYSICIAN Emergency Medicine
DX: I67.4 Hypertensive encephalopathy (principal); N17.9 Acute kidney failure, unspecified; I10 Essential (primary) hypertension; E87.5 Hyperkalemia; R47.02 Dysphasia; Z82.49 Family history of ischemic heart disease and other diseases of the circulatory system; Z87.891 Personal history of nicotine dependence
CPT/HCPCS: 70450; 70496; 70498; 70551; 80053; 80061; 82607; 83036; 84439; 84443; 84484; 85025; 85730; 93005; 93306; 95816; 99285; Q9967

== ENCOUNTER → 2025-08-21 07:50 | Outpatient (REF) | payer MEDICARE, BC, SELFPAY | LOC: RCS 07:50 | PROVIDERS: ATTENDING PHYSICIAN Nurse Practitioner Adult Health | DX: R00.1 Bradycardia, unspecified (principal) | CPT/HCPCS: 93225; 93226 ==